=== PATIENT | male | born 1985 | race Two or more races ===

== ENCOUNTER 2019-01-03 09:58 | Emergency (ER) | payer SELFPAY ==
[2019-01-03 10:03] VITALS: BP 138/87
--- NOTE | 2019-01-03 10:41 | ER Document Report ---
HPI - HPI Time Seen by Provider: 01/03/19 10:19 Context: Patient is a 33-year-old male who presents the emergency department with a chief complaint of neck redness. He states that it is only mildly itchy. He has had this for the 4-5 months and has not been checked out by a primary care provider. He denies any fever, body aches, chills, inability to move his neck or any other symptoms. He has a past medical history of asthma. He is a current everyday smoker. - CONSTITUTIONAL Constitutional: DENIES: Fever, Chills - EENT EENT: DENIES: Sore Throat, Ear Pain, Nasal Drainage-Clear, Nasal Drainage- Purulent, Congestion, Eye problems Notes: Erythema and raised bumps to anterior right neck - NEURO Neurology: DENIES: Headache, Weakness - CARDIOVASCULAR Cardiovascular: DENIES: Chest pain - RESPIRATORY Respiratory: DENIES: Trouble Breathing, Coughing - MUSCULOSKELETAL Musculoskeletal: DENIES: Extremity pain, Back Pain - DERM Skin Color: Normal Skin Problems: None Past Medical History - Social History Smoking Status: Current Every Day Smoker Family History: Other - aunt lymphnode [place] Vertical Provider Document - CONSTITUTIONAL Agree With Documented VS: Yes Exam Limitations: No Limitations General Appearance: No Apparent Distress - HEENT HEENT: Atraumatic, Normocephalic, PERRLA - NECK Neck: Other - Small amount of erythema noted to anterior lateral neck. About 2- 1/2 cm in length - RESPIRATORY Respiratory: Breath Sounds Normal, No Respiratory Distress - CARDIOVASCULAR Cardiovascular: Regular Rate, Regular Rhythm Pulses: Normal: Radial - MUSCULOSKELETAL/EXTREMETIES Musculoskeletal/Extremeties: FROM - NEURO Level of Consciousness: Awake, Alert, Appropriate Motor/Sensory: No Motor Deficit, No Sensory Deficit - DERM Integumentary: Warm, Dry Course - Re-evaluation Re-evalutation: 01/03/19 Patient will be started on prednisone to see if will help with his symptoms. [facility] at [facility]. A very low suspicion for any infectious etiology, as the patient has not had any fever, chills, body aches, or any other symptoms. Follow-up precautions were given. Verbal discharge instructions were given to the patient. They verbalized understanding. They are stable for discharge. - Vital Signs Vital signs: Temp Pulse Resp BP Pulse Ox 98.0 F 80 16 138/87 H 99 09/23/19 10:02 01/03/19 10:02 01/03/19 10:02 01/03/19 10:02 01/03/19 10:02 Discharge - Discharge Clinical Impression: Erythema of neck Condition: Stable Disposition: HOME, SELF-CARE Additional Instructions: You were seen today in the emergency department for redness to the right side of your neck. You are being started on steroids to see if this will help. Please follow-up with the [facility] in regards to this visit. If you develop a fever, shortness of breath, difficulty breathing, or have any symptoms that are worrisome to you, please return to the emergency department. When you get insurance, please establish a primary care provider for further work-up. Prescriptions: Prednisone [Deltasone 20 mg Tablet] 3 tab PO DAILY 5 Days #15 tablet Referrals: [facility] [Provider Group] - Follow up in 1 week
== END 2019-01-03 10:45 | disposition home or self-care (01) ==
LOC: ER 09:58
DX: L53.8 Other specified erythematous conditions (principal); M54.2 Cervicalgia; J45.909 Unspecified asthma, uncomplicated; F17.200 Nicotine dependence, unspecified, uncomplicated
CPT/HCPCS: 99283

== ENCOUNTER 2019-10-15 14:41 | Emergency (ER) | payer SELFPAY ==
[2019-10-15 15:08] VITALS: BP 148/102
[2019-10-15] MEDS ORDERED: IPRATROPIUM/ALBUTEROL 0.5-2.5 MG/3 ML AMPUL NEB ONE (15:18)
[2019-10-15] MEDS ORDERED: METHYLPREDNISOLONE INJ 125 MG/2 ML SDV IV ONE (15:18)
--- NOTE | 2019-10-15 15:32 | ER Document Report ---
ED Respiratory Problem - General Chief Complaint: Asthma Exacerbation Stated Complaint: SHORTNESS OF BREATH Time Seen by Provider: 10/15/19 15:12 Notes: CHIEF COMPLAINT: Difficulty breathing for 4 days HPI: 34-year-old male with asthma history presenting for wheezing and difficulty breathing over the last 4 days states it feels like his asthma. Has used both albuterol nebulizer and MDI without improvement in his breathing. No fever. No COVID concerns. ROS: See HPI - all other systems were reviewed and are otherwise negative Constitutional: no fever Eyes: no drainage, no blurred vision ENT: no runny nose, no sore throat Cardiovascular: no chest pain Resp:+ SOB, + cough GI: no vomiting, no diarrhea, no abdominal pain : no dysuria Integumentary: no rash Allergy: no hives Musculoskeletal: no extremity pain or swelling Neurological: no numbness/tingling, no weakness MEDICATIONS: I agree with the patient medications as charted by the RN. ALLERGIES: I agree with the allergies as charted by the RN. PAST MEDICAL HISTORY/PAST SURGICAL HISTORY: Reviewed and agree as charted by RN. SOCIAL HISTORY: Reviewed and agree as charted by RN. FAMILY HISTORY: No significant familial comorbid conditions directly related to patient complaint EXAM: Reviewed vital signs as charted by RN. CONSTITUTIONAL: Alert and oriented and responds appropriately to questions. Well-appearing; well-nourished HEAD: Normocephalic; atraumatic EYES: PERRL; Conjunctivae clear, sclerae non-icteric ENT: normal nose; no rhinorrhea; moist mucous membranes; pharynx without lesions noted, no uvula edema or deviation, no tonsillar hypertrophy, phonation normal NECK: Supple without meningismus; non-tender; no cervical lymphadenopathy, no masses CARD: RRR; no murmurs, no clicks, no rubs, no gallops; symmetric distal pulses RESP: Normal chest excursion without splinting or tachypnea; breath sounds patient with expiratory wheezing all lung dietrich, no rhonchi, no rales, pulse oximetry 96% on room air not hypoxic ABD/GI: Normal bowel sounds; non-distended; soft, non-tender, no rebound, no guarding; no palpable organomegaly or masses. BACK: The back appears normal and is non-tender to palpation, there is no CVA tenderness EXT: Normal ROM in all joints; non-tender to palpation; no cyanosis, no effusions, no edema SKIN: Normal color for age and race; warm; dry; good turgor; no acute lesions noted NEURO: Moves all extremities equally; Motor and sensory function intact PSYCH: The patient's mood and manner are appropriate. Grooming and personal hygiene are appropriate. MDM: 34-year-old male with no COVID concerns presenting for 4 days of shortness of breath with asthma history. Will give steroids, breathing treatment, reassess - Related Data Allergies/Adverse Reactions: No Known Allergies Allergy (Unverified 01/03/19 10:40) Home Medications: albuterol Past Medical History - Social History Smoking Status: Current Every Day Smoker Frequency of alcohol use: Social Family History: Other - aunt lymphnode [place] Patient has homicidal ideation: No Renal/ Medical History: Denies: Hx Peritoneal Dialysis Physical Exam - Vital signs Vitals: Temp Pulse Resp BP Pulse Ox 97.8 F 100 18 148/102 H 98 10/15/19 15:10/15/19 15:10/15/19 15:10/15/19 15:10/15/19 15:01 Course - Re-evaluation Re-evalutation: 10/15/19 16:33 Patient lung sounds are completely clear at this time. He states he feels much better after breathing treatment and steroids. Will discharge home to continue on steroids and his breathing treatments return for any worsening condition - Vital Signs Vital signs: Temp Pulse Resp BP Pulse Ox 97.8 F 100 18 148/102 H 98 10/15/19 15:10/15/19 15:10/15/19 15:10/15/19 15:10/15/19 15:01 Discharge - Discharge Clinical Impression: Asthma exacerbation Qualifiers: Asthma severity: mild Asthma persistence: persistent Qualified Code(s): J45.31 - Mild persistent asthma with (acute) exacerbation Condition: Stable Disposition: HOME, SELF-CARE Additional Instructions: Continue to use your inhaler or nebulizer every 4 hours for wheezing. Take the steroids as prescribed follow-up with your primary care provider for further ev aluation and treatment call for appointment return for worsening shortness of breath or concerns Prescriptions: Prednisone [Deltasone 20 mg Tablet] 2 tab PO DAILY 5 Days #10 tablet Referrals: CRISTINE NEWTON MD [ACTIVE STAFF] - Follow up as needed
== END 2019-10-15 16:41 | disposition home or self-care (01) ==
LOC: ER 14:41
DX: J45.31 Mild persistent asthma with (acute) exacerbation (principal); F17.200 Nicotine dependence, unspecified, uncomplicated; Z79.51 Long term (current) use of inhaled steroids
CPT/HCPCS: 94640; 99284; 96374; J2930; J7620